=== PATIENT | male | born 1975 | race Caucasian/White ===

== ENCOUNTER 2022-09-20 21:44 | Emergency (ER) | payer MEDICARE | END 2022-09-20 23:00 | disposition home or self-care (01) | LOC: BURERS 21:44 | DX: S00.93XA Contusion of unspecified part of head, initial encounter (principal); S20.219A Contusion of unspecified front wall of thorax, initial encounter; S50.02XA Contusion of left elbow, initial encounter; S60.511A Abrasion of right hand, initial encounter; S80.212A Abrasion, left knee, initial encounter; E78.5 Hyperlipidemia, unspecified; E11.9 Type 2 diabetes mellitus without complications; Y04.0XXA Assault by unarmed brawl or fight, initial encounter; Z79.84 Long term (current) use of oral hypoglycemic drugs; Z79.899 Other long term (current) drug therapy | CPT/HCPCS: 70450; 71046 ==